=== PATIENT | male | born 1960 | race Caucasian/White ===

== ENCOUNTER 2021-06-07 09:05 | Day surgery (SDC) | payer SELFPAY ==
[~2021-06-07] VITALS: Ht 177.8 cm; Wt 85.0 kg
[~2021-06-07 09:05] MED LIST: BISACODYL 10 MG SUPP.RECT. ONE; BUPIVACAINE-EPI 0.5% 30 ML VIAL KIT. ONE; HEPARIN for IV BOLUS 10,000 UNIT/10 ML VIAL. ONE; HYDROmorphone 2 MG/ML VIAL IVP PRN; IOHEXOL 300 MG/ML 50 ML VIAL. ONE; MORPHINE SULFATE 2 MG/ML INJ. IVP PRN; OMEP40CA7 PO; PROCHLORPERAZINE 10 MG/2 ML VIAL. IVP PRN; SURGICEL HEMOSTAT 2X14 EACH. ONE; fentaNYL PF VIAL 100 MCG/2 ML VIAL IVP PRN
[2021-06-07 09:42] VITALS: BP 162/78
[2021-06-07] MEDS: IV RINGERS,LACTATED 1000ML 1,000 ML IV SCH ×3 (09:47→13:13)
[2021-06-07] MEDS ORDERED: IBUPROFEN 200 MG TABLET. PO ONE (10:00)
[2021-06-07] MEDS ORDERED: fentaNYL PF VIAL 250 MCG/5 ML VIAL ONE (10:24)
[2021-06-07] MEDS ORDERED: ROCURONIUM 50 MG/5 ML VIAL. ONE (10:24)
--- NOTE | 2021-06-07 10:26 | PDOC ---
SURGICAL PROGRESS NOTE DATE: 06/07/21 TIME: 10:23 Subjective Pre-Op Note 60 yo M with symptomatic cholelithiasis TO OR for laparoscopic versus open cholecystectomy with cholangiogram. R/R/B/A d/w pt and pt's supportive . Risks, including, but not limited: bleeding, infection, damage to surrounding structures, risk of anesthesia, risk of open. They appear to understand, their questions are answered and they elect to proceed. Office note H&P reviewed and unchanged. Vital Signs Vital Signs Date Time Temp Pulse Resp B/P (MAP) Pulse Ox O2 Delivery O2 Flow Rate FiO2 06/07/21 09:42 98.1 79 99 98.1 06/07/21 09:31 20 162/78 Room Air Labs Laboratory Tests Test 06/05/21 11:30 SARS-CoV-2 RNA ([facility]) Negative (Negative) Justicifation of Admission Dx: Justifications for Admission: Justification of Admission Dx: N/A YEMI MUNOZ MD Jun 07, 2021 10:25
[2021-06-07] MEDS ORDERED: 0.9 % SODIUM CHLORIDE 20 ML VIAL. IJ ONE (11:10)
[2021-06-07] MEDS ORDERED: HYDROCORTISONE SOD SUCC/PF 100 MG/2 ML VIAL. ONE (11:29)
[2021-06-07] MEDS ORDERED: LIDOCAINE 2% PF 5 ML VIAL. ONE (11:56)
[2021-06-07] MEDS ORDERED: SEVOFLURANE 61 TO 120 MINUTES. IH ONE (11:56)
[2021-06-07] MEDS ORDERED: ONDANSETRON PF 4 MG/2 ML VIAL. ONE (11:56)
[2021-06-07] MEDS ORDERED: PROPOFOL 10 MG/ML (20ML) VIAL. IV ONE (11:56)
[2021-06-07] MEDS ORDERED: DEXAMETHASONE SOD PHOS 4 MG/ML VIAL ONE (11:56)
[2021-06-07] MEDS ORDERED: GLYCOPYRROLATE 1 MG/5 ML VIAL. ONE (11:58)
[2021-06-07] MEDS ORDERED: NEOSTIGMINE METHYLSULFATE 5 MG/5 ML SYRINGE. ONE (11:58)
--- NOTE | 2021-06-07 12:52 | RAD ---
EXAM: Intraoperative cholangiogram DATE: 06/07/2021 10:45 AM INDICATION: Reason: CHOLANGIOGRAM IN OR W/C-ARM,FL TIME=.16 MIN,3 IMAGES SENT. / Spl. Instructions: / History: COMPARISON: No Prior FINDINGS/ IMPRESSION: 3 very limited intraoperative fluoroscopic views of the right upper quadrant of the abdomen submitted from the OR. Exam shows steps toward cholangiogram. Opacification of the biliary tree, without obvio us filling defect, with emptying into the duodenum. Note, this does not constitute a diagnostic quali ty exam. Please see operative report for full details. Fluoroscopy time: 0.16 minutes Electronically signed by: Rodney Walker MD (06/07/2021 12:49 PM) [email or web address]
[2021-06-07] MEDS ORDERED: HYDROcodone/APAP 5/325MG 1 TAB TABLET ONE (13:11)
[2021-06-07] MEDS ORDERED: HYDROcodone/APAP 5/325MG 1 TAB TABLET PO ONE (13:15)
[2021-06-07 13:21] VITALS: BP 143/63
--- NOTE | 2021-06-07 14:00 | PDOC4 ---
OPERATIVE NOTE Date: Date: Jun 07, 2021 Pre-Op Diagnosis: Symptomatic cholelithiasis Post-Op Diagnosis: Calculous cholecystitis Procedure Performed: laparoscopic cholecystectomy with cholangiogram Surgeon: Nael Munoz Anesthesia Type: GETA plus local Blood Loss: 50 Specimans Obtained: gallbladder Findings: small amount of adhesions to gallbladder, normal cholangiogram, normal liver and other anatomy. Complications: none Operative Note: After obtaining informed consent, patient was taken to OR, induced under GETA and prepped in the usual fashion. 5 mm port placed umbilical and RUQ, 12 port placed epigastric, all under laparoscopic guidance. Abdominal cavity was explored and noted as above. Gallbladder was grasped and taken off fossa using cautery in dome down fashion. Cystic artery ligated with clips. Cholangiogram obtained via cystic duct (only remaining structure) and was normal. Cystic duct ligated with clips and hemolok. Gallbladder placed in bag, delivered and sent to pathology. Copious irrigation. No evidence of bleeding or other pathology. Ports removed without bleeding. Fascia repaired with 0 vicryl. Skin repaired with 4 0 monocryl. Dressing placed. Patient tolerated procedure well and sent to PACU in stable condition. All counts correct. Wound class is 2. YEMI MUNOZ MD Jun 07, 2021 14:00
--- NOTE | 2021-06-09 09:12 | PATHOLOGY ---
[facility] Accession Number: [id number] . 01 Material submitted: . gallbladder - GALLBLADDER AND CONTENTS . 01 Clinical history: . CHOLELITHIASIS LAP DANIELE GALLSTONES . 02 Diagnosis: Gallbladder, laparoscopic cholecystectomy: - Cholelithiasis. - Chronic cholecystitis. - Reactive changes of gallbladder neck lymph node. (JPM:darrel; 06/08/2021) QMS 06/08/2021 1631 Local . 02 Comment: There is no evidence of malignancy. (JPM:darrel; 06/08/2021) . 02 Electronically signed: . Popeye Salinas MD, Pathologist NPI- [id number] . 01 Gross description: . Fixative: Formalin Labeled: Keli Adan, gallbladder and contents Specimen received: An intact gallbladder Dimensions: 6.8 x 3.1 x 3.0 cm Lymph node: Fabian, rubbery, (0.7 x 0.5 x 0.4 cm), trisected Serosa: Blue-luna, Dusky and hemorrhagic Calculi: Brown with multiple black irregular projections (1.1 x 0.7 0 x 0.6 cm) Mucosa: Brown and velvety without sylvester stippling Average wall thickness: 0.1 cm Abnormalities: None . A1: Gallbladder, represented to include the entirety of the candidate lymph node (BIG PINE RESERVATION; 06/07/2021) DKA/DKA 06/07/2021 1807 Local . 02 Pathologist provided ICD-10: K80.10 . 02 CPT . 733552 Specimen Comment: A courtesy copy of this report has been sent to [phone] Specimen Comment: Report sent to Performed at: [address], [place], [place] [id number] MD Cedrick Rice MD Phone: [phone] Performed at: [address] [id number] MD Popeye Salinas MD Phone: [phone]
== END 2021-06-07 14:00 | disposition home or self-care (01) ==
LOC: SURG 09:05
PROVIDERS: ATTEND Surgery
DX: K80.10 Calculus of gallbladder with chronic cholecystitis without obstruction (principal); K21.9 Gastro-esophageal reflux disease without esophagitis; Z79.899 Other long term (current) drug therapy; Z98.890 Other specified postprocedural states; Z91.041 Radiographic dye allergy status; Z88.8 Allergy status to other drugs, medicaments and biological substances; Z20.822 Contact with and (suspected) exposure to COVID-19
CPT/HCPCS: 47563; 74300; A4209; A4213; A4314; A4930; A6219; C1887; J0690; J1100; J1720; J2405; J2704; J2710; J3010; J3490; Q9967; U0003; U0005; 88304; A4223; J1644